=== PATIENT | male | born 1975 ===

== ENCOUNTER → 2017-04-07 | Outpatient (CLI) | payer OTHER | END | disposition home or self-care (01) | LOC: C.RDSM 08:00 | PROVIDERS: ATTEND Orthopaedic Surgery | DX: M67.432 Ganglion, left wrist (principal) ==

== ENCOUNTER → 2017-04-14 | Outpatient (CLI) | payer OTHER ==
--- NOTE | 2017-04-15 13:58 | DIAGNOSTIC IMAGING REPORT ---
MRI OF THE LEFT WRIST WITHOUT CONTRAST CLINICAL HISTORY: Ganglion cyst. COMPARISON STUDY: Left wrist radiographs April 07, 2017. TECHNIQUE: Utilizing a 1.5 Flakita magnet and dedicated coil, multiplanar, multiecho imaging of the left wrist was performed without intravenous or intra-articular contrast. FINDINGS: A marker was placed on the skin at site of palpable abnormality. There is a corresponding 3.1 x 2.6 x 1.5 cm subcutaneous mass of the dorsal medial left wrist which overlies the extensor carpi ulnaris tendon. There is mild adjacent soft tissue edema. The lesion has multiple foci of enhancement T1 hyperintensity without saturation. There are areas of diminished T1 and T2 signal as well as within this lesion which appears encapsulated. No additional masses are identified. No communication within the deeper structures is noted. Alignment of the carpal bones is anatomic. No marrow edema or marrow placement. TFCC appears intact. Scapholunate and lunotriquetral ligaments appear intact. Distal left radius and ulna are unremarkable. IMPRESSION: 3.1 x 2.6 x 1.5 cm heterogeneous subcutaneous mass of the dorsal medial left wrist which represents the palpable abnormality. Areas of enhancement T1 hyperintensity may reflect blood products or proteinaceous material. This lesion is suboptimally assessed on this unenhanced exam and the patient could return for postcontrast imaging to evaluate for enhancement. Differential considerations include benign etiologies such as complex ganglion cyst and giant cell tumor as well as malignant etiologies such as a sarcoma. The degree of complexity is greater than expected for a ganglion cyst and therefore a neoplasm is the diagnosis of exclusion. Electronically signed by: Juan Bridges M.D. 04/15/2017 1:57 PM Dictated Date/Time: 04/14/2017 2:55 PM
== END | disposition home or self-care (01) ==
LOC: C.MRIBC 13:58
PROVIDERS: ATTEND Orthopaedic Surgery
DX: M67.40 Ganglion, unspecified site (principal)